=== PATIENT | male | born 1945 | race Caucasian/White ===

== ENCOUNTER 2018-12-23 12:51 | Inpatient (IN) | payer OTHER ==
[2018-12-23 14:23] VITALS: BMI 25.0
--- NOTE | 2018-12-23 15:13 | HP ---
CIWA Score Nausea/Vomitin-Mild Nausea/No Vomiting Muscle Tremors: 7-Severe,w/o Arm Extended Anxiety: 3 Agitation: 0-Normal Activity Paroxysmal Sweats: 3 (Increased facial moisture) Orientation: 0-Oriented Tacttile Disturbances: 0-None Auditory Disturbances: 0-None Visual Disturbances: 0-None Headache: 0-None Present CIWA-Ar Total Score: 14 - Admission Criteria OAS Guidelines: Admission for Medically Managed Detox: Requires at least one of the followin. CIWA greater than 12 2. Seizures within the past 24 hours 3. Delirium tremens within the past 24 hours 4. Hallucinations within the past 24 hours 5. Acute intervention needed for co occurring medical disorder 6. Acute intervention needed for co occurring psychiatric disorder 7. Severe withdrawal that cannot be handled at a lower level of care (continued vomiting, continued diarrhea, abnormal vital signs) requiring intravenous medication and/or fluids 8. Patient presents the following: CIWA greater than 12 (CR 0.094) Admission Criteria Met: Admission criteria met Admission ROS S - HPI Chief Complaint: I need to stop driking. I am having shakes and upset stomach" Allergies/Adverse Reactions: Allergies Allergy/AdvReac Type Severity Reaction Status Date / Time No Known Allergies Allergy Verified 12/23/18 14:18 History of Present Illness: 73 yo presents w/ alcohol withdrawal and seeking detox. CR: 0.094. States last drink about midnight. + AOB Started drinking heavy about 5 years ago and stopped then restarted 2 years ago , after . Alcohol problem began at age 21. Use did not become a problem until about 5 years ago. Stopped for a while and restarted 2-3 weeks ago. Currently drinking 750 ml wine daily. States wants to stop drinking but is unable to stop on own. Patient is interested in rehab post detox. Denies blackouts or seizures. PMHx: HTN. Takes Metoprolol 50 mg PO prn if B/P is elevated. Unsteady for a year. Has a walker @ home. Denies falls. MHHx: Denies MH issues. Denies thoughts of harming self or others. SHx: Retired. Domiciled. Search Terms: Ric Yan, 1945 Search Date: 12/23/2018 03:05:26 PM The Drug Utilization Report below displays all of the controlled substance prescriptions, if any, that your patient has filled in the last twelve months. The information displayed on this report is compiled from pharmacy submissions to the Department, and accurately reflects the information as submitted by the pharmacies. This report was requested by: Jelena Rowell | Reference #: [id number] There are no results for the search terms that you entered. Exam Limitations: No Limitations - Ebola screening Have you traveled outside of the country in the last 21 days: No Have you had contact with anyone from an Ebola affected area: No Have you been sick,other than usual withdrawal symptoms: No (Denies mealses exposure) Do you have a fever: No - Review of Systems Constitutional: Chills, Diaphoresis EENT: reports: Cataracts (Hx cataract surgery), Blurred Vision Respiratory: reports: No Symptoms reported Cardiac: reports: No Symptoms Reported GI: reports: Nausea : reports: No Symptoms Reported Musculoskeletal: reports: No Symptoms Reported Integumentary: reports: No Symptoms Reported Neuro: reports: Tremors, Unsteady Gait (States uses a walker at home, sometimes. Did not bring.), Dizziness (Balance issues. Denies recent falls) Endocrine: reports: Increased Thirst Hematology: reports: No Symptoms Reported Psychiatric: reports: Judgement Intact, Orientated x3, Anxious Patient History - PPD History Previous Implant?: No PPD to be Administered?: No - Smoking Cessation Smoking history: Never smoked Have you smoked in the past 12 months: No Hx Chewing Tobacco Use: No Initiated information on smoking cessation: No - Substance & Tx. History Hx Alcohol Use: Yes Hx Substance Use: No Substance Use Type: Alcohol Hx Substance Use Treatment: Yes (once 5 yrs ago.) - Substances abused Alcohol Substance route: Oral Frequency: Daily Amount used: 1 BOTTLE OF RED WINE Age of first use: 21 Date of last use: 12/22/18 Admission Physical Exam [facility] - Vital Signs Vital Signs: Vital Signs - 24 hr 12/23/18 14:20 Temperature 97.3 F L Pulse Rate 105 H Respiratory 20 Rate Blood Pressure 137/82 - Physical General Appearance: Yes: Nourished, Mild Distress, Alcohol on Breath (CR 0.094) , Tremorous, Sweating (Increased facial moisture) HEENTM: Yes: EOMI (JERKING MOVEMENT OF EYES UPON LATERAL GAZE), Hearing grossly Normal, Normocephalic, Normal Voice, HILL, Pharynx Normal Respiratory: Yes: Lungs Clear, Normal Breath Sounds, No Respiratory Distress Neck: Yes: No masses,lesions,Nodules, Supple Breast: Yes: Breast Exam Deferred Cardiology: Yes: Regular Rhythm, S1, S2, Tachycardia (HR: 102) Abdominal: Yes: Non Tender, Increased Bowel Sounds, Protuberent (INCREASED ABD ADIPOSITY) Genitourinary: Yes: Within Normal Limits Back: Yes: Normal Inspection Musculoskeletal: Yes: full range of Motion, Other (GAIT UNSTEADY) Extremities: Yes: Normal Capillary Refill, Tremors (GROSS TREMORS), Erythema ( Increased erythema pedal areas. Pedal pulses (+). Cap refill wnl. Non-tender.) Neurological: Yes: buttonholer II-XII NML intact (JERKING MOVEMENT OF EYES UPON LATERAL GAZE), Fully Oriented, Alert, Motor Strength 5/5 Integumentary: Yes: Dry (Decreased skin turgor. Dry skin except for increased facial moisture), Other (GENERALIZED THICKENED, ERYTHEMATOUS SKIN ON AREAS EXPOSED TO SUN) Lymphatic: Yes: Within Normal Limits - Diagnostic (1) Alcohol dependence with uncomplicated withdrawal Current Visit: Yes Status: Acute (2) Tachycardia, unspecified Current Visit: Yes Status: Acute (3) Unsteady gait Current Visit: Yes Status: Chronic (4) Nystagmus Current Visit: Yes Status: Acute (5) HTN (hypertension) Current Visit: Yes Status: Chronic Qualifiers: Hypertension type: essential hypertension Qualified Code(s): I10 - Essential (primary) hypertension Cleared for Admission S - Detox or Rehab [facility] Level of Care: Medically Managed Detox Regimen/Protocol: Librium Claeared for Rehab Admission: No Breathalyzer - Breathalyzer Breathalyzer: 0.094 Urine Drug Screen - Test Device Lot number: [id number] Expiration date: 09/25/20 - Control Is test valid?: Yes - Results Drug screen NEGATIVE: No Urine drug screen results: BZO-Benzodiazepines Inpatient Rehab Admission - Rehab Decision to Admit Inpatient rehab admission?: No
[2018-12-23] MEDS ORDERED: MAG HYDROX/AL HYDROX/SIMETH 30 ML UNIT-DOSE CUP PO PRN (15:46)
[2018-12-23] MEDS ORDERED: MAGNESIUM CITRATE 300 ML BOTTLE PO PRN (15:46)
[2018-12-23] MEDS ORDERED: BISMUTH SUBSALICYLATE 524 MG/30 ML UD PO PRN (15:46)
[2018-12-23] MEDS ORDERED: ACETAMINOPHEN 325 MG TABLET (FP) PO PRN (15:46)
[2018-12-23] MEDS ORDERED: MENTHOL/PHENOL 1 EACH UD MM PRN (15:46)
[2018-12-23] MEDS ORDERED: IBUPROFEN 400 MG TABLET (FP) PO PRN (15:46)
[2018-12-23] MEDS ORDERED: MAGNESIUM HYDROX 2400MG/30ML ORAL SUSPENSION 30 ML CUP PO PRN (15:46)
[2018-12-23] MEDS ORDERED: chlordiazePOXIDE HCL 10 MG CAPSULE PO PRN (15:46)
[2018-12-23] MEDS ORDERED: MELATONIN 5 MG TABLETS PO PRN (15:46)
[2018-12-23] MEDS ORDERED: chlordiazePOXIDE HCL 25 MG CAPSULE PO ONE (17:30)
[2018-12-23] MEDS ORDERED: cloNIDine HCL 0.1 MG TABLET PO ONE (18:00)
[2018-12-23] MEDS: THIAMINE HCL 100 MG TABLET (FP) PO SCH (21:47)
[2018-12-23] MEDS: chlordiazePOXIDE HCL 25 MG CAPSULE PO SCH (21:47)
[2018-12-24] MEDS: chlordiazePOXIDE HCL 25 MG CAPSULE PO SCH ×3 (06:17→22:44)
[2018-12-24] MEDS: PRENATAL VITAMINS W/ FOLIC ACID TABLET (FP) PO SCH (10:03)
--- NOTE | 2018-12-24 10:34 | EKG ---
Test Reason : Blood Pressure : / mmHG Vent. Rate : 095 BPM Atrial Rate : 095 BPM P-R Int : 164 ms QRS Dur : 092 ms QT Int : 358 ms P-R-T Axes : 045 062 039 degrees QTc Int : 449 ms NORMAL SINUS RHYTHM NORMAL ECG NO PREVIOUS ECGS AVAILABLE Confirmed by JAY DUBOIS MD ([id number]) on 12/24/2018 10:34:19 AM Referred By: Confirmed By:JAY DUBOIS MD
[2018-12-24 11:44] LABS: HEMATOCRIT 38.1 % (35.4-49); HEMOGLOBIN 12.8 GM/dL (11.7-16.9); MCH 30.5 pg (25.7-33.7); MCHC 33.6 g/dl (32.0-35.9); MEAN CELL VOLUME 90.8 fl (80-96); MEAN PLT VOLUME 7.3 fl (7.5-11.1); PLATELET COUNT 199 K/MM3 (134-434); RDW 18.5 % (11.9-15.9); WHITE BLOOD COUNT 4.6 K/mm3 (4.0-10.0)
[2018-12-24] MEDS: ACETAMINOPHEN 325 MG TABLET (FP) PO PRN (11:48)
[2018-12-24 11:53] LABS: ALBUMIN 3.6 g/dl (3.4-5.0); BILIRUBIN,TOTAL 0.4 mg/dL (0.2-1); BLOOD UREA NITROGEN 15.1 mg/dL (7-18); CALCIUM 8.9 mg/dL (8.5-10.1); CREATININE 0.7 mg/dL (0.55-1.3); POTASSIUM 3.7 mmol/L (3.5-5.1); TOT PROT 7.3 g/dl (6.4-8.2)
--- NOTE | 2018-12-24 13:18 | PN ---
S CIWA - CIWA Score Nausea/Vomitin Muscle Tremors: 2 Anxiety: 3 Agitation: 3 Paroxysmal Sweats: 1-Minimal Palms Moist Orientation: 0-Oriented Tacttile Disturbances: 1-Very Mild Itch/Numbness Auditory Disturbances: 0-None Visual Disturbances: 0-None Headache: 2-Mild CIWA-Ar Total Score: 14 S Progress Note (SOAP) Subjective: alert,irritable,anxious,interrupted sleep,tremor Objective: 12/24/18 13:17 Vital Signs Temperature 98.3 F 12/24/18 13:13 Pulse Rate 92 H 12/24/18 13:13 Respiratory Rate 16 12/24/18 13:13 Blood Pressure 153/93 12/24/18 13:13 O2 Sat by Pulse Oximetry (%) Laboratory Last Values WBC 4.6 K/mm3 (4.0-10.0) 12/24/18 07:30 RBC 4.20 M/mm3 (4.00-5.60) 12/24/18 07:30 Hgb 12.8 GM/dL (11.7-16.9) 12/24/18 07:30 Hct 38.1 % (35.4-49) 12/24/18 07:30 MCV 90.8 fl (80-96) 12/24/18 07:30 MCH 30.5 pg (25.7-33.7) 12/24/18 07:30 MCHC 33.6 g/dl (32.0-35.9) 12/24/18 07:30 RDW 18.5 % (11.9-15.9) H 12/24/18 07:30 Plt Count 199 K/MM3 (134-434) 12/24/18 07:30 MPV 7.3 fl (7.5-11.1) L 12/24/18 07:30 Sodium 139 mmol/L (136-145) 12/24/18 07:30 Potassium 3.7 mmol/L (3.5-5.1) 12/24/18 07:30 Chloride 104 mmol/L (98-107) 12/24/18 07:30 Carbon Dioxide 27 mmol/L (21-32) 12/24/18 07:30 Anion Gap 8 MMOL/L (8-16) 12/24/18 07:30 BUN 15.1 mg/dL (7-18) 12/24/18 07:30 Creatinine 0.7 mg/dL (0.55-1.3) 12/24/18 07:30 Est GFR (CKD-EPI)AfAm 110.04 12/24/18 07:30 Est GFR (CKD-EPI)NonAf 94.95 12/24/18 07:30 Random Glucose 105 mg/dL (74-106) 12/24/18 07:30 Calcium 8.9 mg/dL (8.5-10.1) 12/24/18 07:30 Total Bilirubin 0.4 mg/dL (0.2-1) 12/24/18 07:30 AST 49 U/L (15-37) H 12/24/18 07:30 ALT 46 U/L (13-61) 12/24/18 07:30 Alkaline Phosphatase 72 U/L (45-117) 12/24/18 07:30 Total Protein 7.3 g/dl (6.4-8.2) 12/24/18 07:30 Albumin 3.6 g/dl (3.4-5.0) 12/24/18 07:30 Assessment: 12/24/18 13:18 withdrawal symptom Plan: continue detox librium regimen
--- NOTE | 2018-12-24 13:22 | PN ---
[facility] Progress Note Note: patient is on toprol xl 50 mgs po daily for hypertension,close monitoring of bp
[2018-12-24] MEDS: THIAMINE HCL 100 MG TABLET (FP) PO SCH (22:44)
[2018-12-25] MEDS: chlordiazePOXIDE 5 MG CAPSULE PO SCH ×3 (05:44→22:11)
[2018-12-25] MEDS: PRENATAL VITAMINS W/ FOLIC ACID TABLET (FP) PO SCH (10:06)
--- NOTE | 2018-12-25 11:40 | PN ---
S CIWA - CIWA Score Nausea/Vomitin Muscle Tremors: 2 Anxiety: 2 Agitation: 2 Paroxysmal Sweats: No Perspiration Orientation: 0-Oriented Tacttile Disturbances: 0-None Auditory Disturbances: 0-None Visual Disturbances: 0-None Headache: 1-Very Mild CIWA-Ar Total Score: 9 S Progress Note (SOAP) Subjective: alert,irritable,anxious,interrupted sleep,tremor Objective: 12/25/18 11:38 Vital Signs Temperature 97.8 F 12/25/18 09:35 Pulse Rate 90 12/25/18 09:35 Respiratory Rate 18 12/25/18 09:35 Blood Pressure 145/83 12/25/18 09:35 O2 Sat by Pulse Oximetry (%) Laboratory Last Values WBC 4.6 K/mm3 (4.0-10.0) 12/24/18 07:30 RBC 4.20 M/mm3 (4.00-5.60) 12/24/18 07:30 Hgb 12.8 GM/dL (11.7-16.9) 12/24/18 07:30 Hct 38.1 % (35.4-49) 12/24/18 07:30 MCV 90.8 fl (80-96) 12/24/18 07:30 MCH 30.5 pg (25.7-33.7) 12/24/18 07:30 MCHC 33.6 g/dl (32.0-35.9) 12/24/18 07:30 RDW 18.5 % (11.9-15.9) H 12/24/18 07:30 Plt Count 199 K/MM3 (134-434) 12/24/18 07:30 MPV 7.3 fl (7.5-11.1) L 12/24/18 07:30 Sodium 139 mmol/L (136-145) 12/24/18 07:30 Potassium 3.7 mmol/L (3.5-5.1) 12/24/18 07:30 Chloride 104 mmol/L (98-107) 12/24/18 07:30 Carbon Dioxide 27 mmol/L (21-32) 12/24/18 07:30 Anion Gap 8 MMOL/L (8-16) 12/24/18 07:30 BUN 15.1 mg/dL (7-18) 12/24/18 07:30 Creatinine 0.7 mg/dL (0.55-1.3) 12/24/18 07:30 Est GFR (CKD-EPI)AfAm 110.04 12/24/18 07:30 Est GFR (CKD-EPI)NonAf 94.95 12/24/18 07:30 Random Glucose 105 mg/dL (74-106) 12/24/18 07:30 Calcium 8.9 mg/dL (8.5-10.1) 12/24/18 07:30 Total Bilirubin 0.4 mg/dL (0.2-1) 12/24/18 07:30 AST 49 U/L (15-37) H 12/24/18 07:30 ALT 46 U/L (13-61) 12/24/18 07:30 Alkaline Phosphatase 72 U/L (45-117) 12/24/18 07:30 Total Protein 7.3 g/dl (6.4-8.2) 12/24/18 07:30 Albumin 3.6 g/dl (3.4-5.0) 12/24/18 07:30 RPR Titer Nonreactive (NONREACTIVE) 12/24/18 07:30 Assessment: 12/25/18 11:39 withdrawal symptom Plan: continue detox librium regimen,bp monitoring
[2018-12-25 12:20] LABS: PH,URINE 7.5 (5.0-8.0); URINE APPEARANCE CLEAR; URINE BILIRUBIN NEGATIVE (NEGATIVE); URINE COLOR YELLOW; URINE GLUCOSE (UA) NEGATIVE (NEGATIVE); URINE KETONE NEGATIVE (NEGATIVE); URINE LEUK ESTERASE NEGATIVE (NEGATIVE); URINE NITRITE NEGATIVE (NEGATIVE); URINE PROTEIN NEGATIVE (NEGATIVE); URINE UROBILINOGEN 0.2 mg/dL (0.2-1.0)
[2018-12-25] MEDS: THIAMINE HCL 100 MG TABLET (FP) PO SCH (22:11)
[2018-12-26] MEDS ORDERED: chlordiazePOXIDE HCL 10 MG CAPSULE PO PRN
[2018-12-26] MEDS: chlordiazePOXIDE HCL 10 MG CAPSULE PO SCH ×3 (06:03→22:09)
[2018-12-26] MEDS: PRENATAL VITAMINS W/ FOLIC ACID TABLET (FP) PO SCH (10:17)
[2018-12-26] MEDS: ACETAMINOPHEN 325 MG TABLET (FP) PO PRN (12:28)
--- NOTE | 2018-12-26 13:48 | PN ---
[facility] CIWA - CIWA Score Nausea/Vomitin-No Nausea/No Vomiting Muscle Tremors: 3 Anxiety: 4-Mod. Anxious/Guarded Agitation: 2 Paroxysmal Sweats: No Perspiration Orientation: 0-Oriented Tacttile Disturbances: 0-None Auditory Disturbances: 0-None Visual Disturbances: 0-None Headache: 0-None Present CIWA-Ar Total Score: 9 S Progress Note (SOAP) Subjective: Pt is oob ambulating with steady gait. Reports slight tremors but detox taper effective. hx HTN on Metoprolol 50 mg po daily. Scheduled for discharge tomorrow and pt states he is going home. Pt reports he has a primary doctor and has his Metoprolol at home. Objective: 12/26/18 14:00 Vital Signs - 24 hr 12/25/18 12/25/18 12/26/18 17:45 21:42 00:30 Temperature 98.2 F 97.3 F L Pulse Rate 85 94 H Respiratory 16 18 18 Rate Blood Pressure 148/89 135/84 12/26/18 12/26/18 12/26/18 05:56 09:24 13:35 Temperature 97.4 F L 97.2 F L 97.0 F L Pulse Rate 79 87 74 Respiratory 18 18 18 Rate Blood Pressure 139/82 149/85 152/79 Laboratory Tests 12/24/18 12/24/18 12/24/18 07:30 07:30 07:30 WBC 4.6 RBC 4.20 Hgb 12.8 Hct 38.1 MCV 90.8 MCH 30.5 MCHC 33.6 RDW 18.5 H Plt Count 199 MPV 7.3 L Sodium 139 Potassium 3.7 Chloride 104 Carbon Dioxide 27 Anion Gap 8 BUN 15.1 Creatinine 0.7 Est GFR (CKD-EPI)AfAm 110.04 Est GFR (CKD-EPI)NonAf 94.95 Random Glucose 105 Calcium 8.9 Total Bilirubin 0.4 AST 49 H ALT 46 Alkaline Phosphatase 72 Total Protein 7.3 Albumin 3.6 Urine Color Urine Appearance Urine pH Ur Specific [place] Urine Protein Urine Glucose (UA) Urine Ketones Urine Blood Urine Nitrite Urine Bilirubin Urine Urobilinogen Ur Leukocyte Esterase RPR Titer Nonreactive 12/25/18 10:00 WBC RBC Hgb Hct MCV MCH MCHC RDW Plt Count MPV Sodium Potassium Chloride Carbon Dioxide Anion Gap BUN Creatinine Est GFR (CKD-EPI)AfAm Est GFR (CKD-EPI)NonAf Random Glucose Calcium Total Bilirubin AST ALT Alkaline Phosphatase Total Protein Albumin Urine Color Yellow Urine Appearance Clear Urine pH 7.5 Ur Specific [place] 1.014 Urine Protein Negative Urine Glucose (UA) Negative Urine Ketones Negative Urine Blood Negative Urine Nitrite Negative Urine Bilirubin Negative Urine Urobilinogen 0.2 Ur Leukocyte Esterase Negative RPR Titer Assessment: 12/26/18 14:00 withthrawal sx Plan: continue librium detox taper May d/c tomorrow if stable D/w pt to follow up with pcp for medical management after discharge
[2018-12-26] MEDS: THIAMINE HCL 100 MG TABLET (FP) PO SCH (22:09)
[2018-12-27] MEDS ORDERED: chlordiazePOXIDE HCL 10 MG CAPSULE PO ONE (05:00)
[2018-12-27 09:55] VITALS: BP 144/81; PULSE 78; TEMP 98.4
[2018-12-27] MEDS: PRENATAL VITAMINS W/ FOLIC ACID TABLET (FP) PO SCH (10:10)
--- NOTE | 2018-12-27 15:09 | DS ---
[facility] Detox Discharge Summary Admission Date: 12/23/18 Discharge Date: 12/27/18 - History Present History: Alcohol Dependence Additional Comments: 73 years old male first patient [facility] admission was admitted on 12/23/18 for alcohol withdrawal sx management doing well with librum detox regimen no complication through out the detox stay alert oriented x 3 Cardiac S1S2 regular rate rhythm respiratory: clear bilaterally on auscultation abdomen soft no rebound tenderness - Physical Exam Results Vital Signs: Vital Signs Temperature 98.4 F 12/27/18 09:54 Pulse Rate 78 12/27/18 09:54 Respiratory Rate 18 12/27/18 09:54 Blood Pressure 144/81 12/27/18 09:54 O2 Sat by Pulse Oximetry (%) Pertinent Admission Physical Exam Findings: alcohol withdrawal sx Laboratory Last Values WBC 4.6 K/mm3 (4.0-10.0) 12/24/18 07:30 RBC 4.20 M/mm3 (4.00-5.60) 12/24/18 07:30 Hgb 12.8 GM/dL (11.7-16.9) 12/24/18 07:30 Hct 38.1 % (35.4-49) 12/24/18 07:30 MCV 90.8 fl (80-96) 12/24/18 07:30 MCH 30.5 pg (25.7-33.7) 12/24/18 07:30 MCHC 33.6 g/dl (32.0-35.9) 12/24/18 07:30 RDW 18.5 % (11.9-15.9) H 12/24/18 07:30 Plt Count 199 K/MM3 (134-434) 12/24/18 07:30 MPV 7.3 fl (7.5-11.1) L 12/24/18 07:30 Sodium 139 mmol/L (136-145) 12/24/18 07:30 Potassium 3.7 mmol/L (3.5-5.1) 12/24/18 07:30 Chloride 104 mmol/L (98-107) 12/24/18 07:30 Carbon Dioxide 27 mmol/L (21-32) 12/24/18 07:30 Anion Gap 8 MMOL/L (8-16) 12/24/18 07:30 BUN 15.1 mg/dL (7-18) 12/24/18 07:30 Creatinine 0.7 mg/dL (0.55-1.3) 12/24/18 07:30 Est GFR (CKD-EPI)AfAm 110.04 12/24/18 07:30 Est GFR (CKD-EPI)NonAf 94.95 12/24/18 07:30 Random Glucose 105 mg/dL (74-106) 12/24/18 07:30 Calcium 8.9 mg/dL (8.5-10.1) 12/24/18 07:30 Total Bilirubin 0.4 mg/dL (0.2-1) 12/24/18 07:30 AST 49 U/L (15-37) H 12/24/18 07:30 ALT 46 U/L (13-61) 12/24/18 07:30 Alkaline Phosphatase 72 U/L (45-117) 12/24/18 07:30 Total Protein 7.3 g/dl (6.4-8.2) 12/24/18 07:30 Albumin 3.6 g/dl (3.4-5.0) 12/24/18 07:30 Urine Color Yellow 12/25/18 10:00 Urine Appearance Clear 12/25/18 10:00 Urine pH 7.5 (5.0-8.0) 12/25/18 10:00 Ur Specific [place] 1.014 (1.010-1.035) 12/25/18 10:00 Urine Protein Negative (NEGATIVE) 12/25/18 10:00 Urine Glucose (UA) Negative (NEGATIVE) 12/25/18 10:00 Urine Ketones Negative (NEGATIVE) 12/25/18 10:00 Urine Blood Negative (NEGATIVE) 12/25/18 10:00 Urine Nitrite Negative (NEGATIVE) 12/25/18 10:00 Urine Bilirubin Negative (NEGATIVE) 12/25/18 10:00 Urine Urobilinogen 0.2 mg/dL (0.2-1.0) 12/25/18 10:00 Ur Leukocyte Esterase Negative (NEGATIVE) 12/25/18 10:00 RPR Titer Nonreactive (NONREACTIVE) 12/24/18 07:30 lab noted - Treatment Hospital Course: Detox Protocol Followed, Detoxed Safely, Responded well, Discharged Condition Good, Rehab Referral Accepted Patient has Accepted a Rehab Referral to: [facility] - Medication Discharge Medications: Ambulatory Orders Metoprolol Succinate 50 mg PO DAILY 12/26/18 - Diagnosis (1) Alcohol dependence with uncomplicated withdrawal Status: Acute (2) HTN (hypertension) Status: Chronic Qualifiers: Hypertension type: essential hypertension Qualified Code(s): I10 - Essential (primary) hypertension - AMA Did Patient Leave Against Medical Advice: No
== END 2018-12-27 10:25 | disposition home or self-care (01) | DRG 897 ==
LOC: YASAS 12:51 → Y3N 17:10
PROVIDERS: ADMIT Surgery; ATTEND Surgery
PROC: HZ2ZZZZ Detoxification Services for Substance Abuse Treatment (ICD-10-PCS; principal; 2018-12-23)
DX: F10.230 Alcohol dependence with withdrawal, uncomplicated (principal); I10 Essential (primary) hypertension; R00.0 Tachycardia, unspecified; H55.00 Unspecified nystagmus; R26.89 Other abnormalities of gait and mobility; Z99.89 Dependence on other enabling machines and devices
CPT/HCPCS: 36415; 80053; 81003; 85027; 86480; 86593; 93005; 93010; J0735